=== PATIENT | female | born 1935 | race Caucasian/White ===

== ENCOUNTER 2019-01-10 14:40 | Observation (INO) | payer MEDICARE ==
[2019-01-10] MEDS ORDERED: Heparin Sodium/D5W 25,000 UNITS/500 ML BAG IV SCH (17:00)
[2019-01-10] MEDS ORDERED: Digoxin 500 MCG/2 ML Amp IV ONE (17:00)
[2019-01-10] MEDS ORDERED: Rivaroxaban 10 MG Tab PO ONE (17:13)
--- NOTE | 2019-01-10 17:13 | PCM.HP.2 ---
H&P History of Present Illness - General Date of Service: 01/10/19 Source of Information: Patient History Limitations: Reports: No Limitations - History of Present Illness Initial Comments - Free Text/Narative: Sudden onset of shortness of breath Wednesday PM when she got home from [facility]. She has had weakness and shortness of breath since and worse with activity. She came to the clinic not feeling well. She has had Palpations in the past. She drinks one cup of coffee daily usually. Onset of Symptoms: Reports: Sudden Symptom Onset Date: 01/08/19 Location: Reports: Generalized Associated Symptoms: Reports: Shortness of Breath, Other (rapid heart rate) - Related Data Allergies/Adverse Reactions: Allergies Allergy/AdvReac Type Severity Reaction Status Date / Time No Known Allergies Allergy Verified 01/23/16 08:01 Home Medications: Home Meds Carvedilol [Coreg] 25 mg PO BID 02/14/13 [History] Pravastatin Sodium 40 mg PO DAILY 02/14/13 [History] Past Medical History HEENT History: Reports: Impaired Vision Cardiovascular History: Reports: Arrhythmia, High Cholesterol, Hypertension Gastrointestinal History: Reports: GERD STOCK FITTER History: Reports: Dysfunctional Uterine Bleeding, Endometriosis, Fibroids , Musculoskeletal History: Reports: Arthritis, Back Pain, Chronic, Other (See Below) Other Musculoskeletal History: spinal fussion Hematologic History: Reports: Blood Transfusion(s) Oncologic (Cancer) History: Reports: Other (See Below) Other Oncologic History: melanoma - Past Surgical History HEENT Surgical History: Reports: Other (See Below) GI Surgical History: Reports: Appendectomy, Colonoscopy Female Surgical History: Reports: Hysterectomy, Salpingo-Oophorectomy Neurological Surgical History: Reports: Spinal Fusion Social & Family History - Family History Cardiac: Reports: [place] Neurological: Reports: Cerebral Aneurysms Psychiatric: Reports: Depression Oncologic: Reports: Breast, Lung, Other (See Below) Other Oncologic Family History: adrenal cancer - Caffeine Use Caffeine Use: Reports: Coffee H&P Review of Systems - Review of Systems: Review Of Systems: See Below General: Reports: Weakness, Decreased Appetite Pulmonary: Reports: Shortness of Breath Cardiovascular: Reports: Palpitations, Dyspnea on Exertion, Lightheadedness Gastrointestinal: Reports: No Symptoms Genitourinary: Reports: No Symptoms Musculoskeletal: Reports: No Symptoms Skin: Reports: No Symptoms Psychiatric: Reports: No Symptoms Exam - Exam Exam: See Below - Vital Signs Vital Signs: Last Vital Signs Temp 97.6 F 01/10/19 15:13 Pulse 104 H 01/10/19 15:13 Resp BP 140/89 01/10/19 15:13 Pulse Ox 100 01/10/19 15:13 Weight: 145 lb - Exam General: Alert, Oriented, Moderate Distress HEENT: PERRLA, Hearing Intact, Mucosa Moist & [place], Nares Patent, Normal Nasal Septum, Posterior Pharynx Clear, Conjunctiva Clear, EOMI, EACs Clear, TMs Clear Neck: Supple, Trachea Midline, 2 Lungs: Clear to Auscultation, Normal Respiratory Effort Cardiovascular: Irregular Rhythm, Tachycardia GI/Abdominal Exam: Normal Bowel Sounds, Soft, Non-Tender, No Organomegaly, No Distention, No Abnormal Bruit, No Mass, Pelvis Stable Back Exam: Normal Inspection, Full Range of Motion, NT Extremities: Normal Inspection, Normal Range of Motion, Non-Tender, No Pedal Edema, Normal Capillary Refill Peripheral Pulses: 1+: Radial (L), Radial (R) Skin: Warm, Dry, Intact Neuro Extensive - Mental Status: Alert, Oriented x3, Normal Mood/Affect, Normal Cognition DTR: 1+: Bicep (L), Bicep (R) Psychiatric: Alert, Normal Affect, Normal Mood - Patient Data Lab Results Last 24 hrs: Laboratory Results - last 24 hr 01/10/19 01/10/19 Range/Units 16:41 17:00 WBC 8.3 (4.5-11.0) K/uL RBC 4.83 (3.30-5.50) M/uL Hgb 14.9 (12.0-15.0) g/dL Hct 45.1 (36.0-48.0) % MCV 93 (80-98) fL MCH 31 (27-31) pg MCHC 33 (32-36) % Plt Count 235 (150-400) K/uL APTT 25.7 L (27.0-36.0) sec Result Diagrams: 01/10/19 17:00 Problem List Initiated/Reviewed/Updated: Yes Orders Last 24hrs: Active Orders 24 hr Category Date Time Status EKG Documentation Completion [RC] ASDIRECTED Care 01/10/19 16:29 Active Echo Comp wo Cont [US] Routine Exams 01/11/19 07:00 Stop Req Echo Comp wo Cont [US] Routine Exams 01/12/19 07:00 Ordered COMPREHENSIVE METABOLIC PN,CMP [CHEM] Routine Lab 01/10/19 17:00 Ordered CREATINE KINASE,CK [CHEM] Routine Lab 01/10/19 17:00 Ordered TROPONIN I [CHEM] Routine Lab 01/10/19 17:00 Ordered URINALYSIS W/MICROSCOPIC [UA W/MICROSCOPIC] [URIN] Lab 01/10/19 17:00 Ordered Routine Heparin Sodium/D5W [Heparin 25,000 Units in D5W 500 ML] Med 01/10/19 17:00 Pending 25,000 units in 500 ml IV TITRATE EKG 12 Lead [EK] Routine Ther 01/10/19 17:00 Ordered Medication Orders Heparin Sodium/Dextrose (Heparin 25,000 Units In D5w 500 Ml) 25,000 units in 500 mls @ 23.4 mls/hr IV TITRATE SITA; Protocol Assessment/Plan Comment:: Assessment/Plan: #1. Atrial fib with tachycardia response. We are <72 hours from the onset so will cardiovert here tonight. at 7:30. Will then continue with Xarelto 20 mg daily with food post cardioversion. #2. HTN: Will continue with Coreg 25 mg daily and Losartan 50mg daily. #3. HLD: Continue with Pravastatin 40 m daily.
[2019-01-10] MEDS ORDERED: Propofol 200 MG/20 ML SDV ONE (20:00)
--- NOTE | 2019-01-10 20:10 | PCM.OPNOTE ---
- General Post-Op/Procedure Note Date of Surgery/Procedure: 01/10/19 Operative Procedure(s): Cardioversion Pre Op Diagnosis: Atrial Fib Post-Op Diagnosis: Conversion to NSR Condition: Good
[2019-01-10] MEDS: Carvedilol 25 MG Tab PO SCH (20:35)
--- NOTE | 2019-01-11 07:47 | PROC ---
DATE OF PROCEDURE: 01/10/2019 SURGEON: Chirag Moses MD Deepa Pierson is an 83-year-old female who comes in for an evaluation because of severe weakness. She came into the office, having no energy and shortness of breath. This started less than 72 hours ago. She said it became regular and then it went tachycardic again. I sent her over to the hospital to the ICU for evaluation and decided to do cardioversion. There is a family history in her son, as well as her mother, needing cardioversions as well, due to atrial fibrillation. The risks and benefits were explained to the patient. This was done in the ICU while she was in her bed. Anesthesia was assisted, and they gave her propofol prior to the procedure. She was given the medication. She fell asleep. We used 200 joules, and she converted to normal sinus rhythm, documented by electrocardiogram. She is already on a beta marylin. We have given her an extra 12.5 mg p.o. and also gave her digoxin earlier. Her heart rate prior to the procedure was up to 150-160 and blood pressure in the office was 80 systolic, then went up to 150 while in the hospital. PREOPERATIVE DIAGNOSIS: Atrial fibrillation. POSTOPERATIVE DIAGNOSIS: Conversion to a normal sinus rhythm. Chirag Moses MD /[id number]
[2019-01-11 07:48] VITALS: BP 143/69
[2019-01-11 08:34] VITALS: PULSE 62
[2019-01-11] MEDS: Carvedilol 25 MG Tab PO SCH (08:34)
[2019-01-11] MEDS ORDERED: Pravastatin 20 MG Tab PO SCH (09:00)
--- NOTE | 2019-01-11 16:24 | PCM.DCSUM1 ---
Discharge Summary - Hospital Course Brief History: Admitted from the office after was found that she was in atrial fibrillation with a bratty tachycardia syndrome and hypotension. Diagnosis: Stroke: No - Discharge Data Discharge Date: 01/11/19 Discharge Disposition: Home, Self-Care 01 Condition: Good - Referral to Home Health Primary Care Physician: Chirag Moses Sr, MD - Patient Summary/Data Operative Procedure(s) Performed: Cardioversion Hospital Course: After admission to the hospital we ordered a cardioversion which wasn't done and her heart rate returned from tachycardia to a normal sinus rhythm with a few PACs. She was observed through the night and electrocardiogram was done in the morning which showed sinus rhythm. She was placed on Xarelto 20 mg daily. She was discharged home and to follow-up in the office in one week. - Patient Instructions Diet: Heart Healthy Diet Activity: As Tolerated - Discharge Plan *PRESCRIPTION DRUG MONITORING PROGRAM REVIEWED*: No *COPY OF PRESCRIPTION DRUG MONITORING REPORT IN PATIENT BRENT: No Prescriptions/Med Rec: Rivaroxaban [Xarelto] 20 mg PO DAILY 30 Days tablet Home Medications: Home Meds Carvedilol [Coreg] 25 mg PO BID 02/14/13 [History] Pravastatin Sodium 40 mg PO DAILY 02/14/13 [History] Losartan Potassium 50 mg PO DAILY 01/10/19 [History] Rivaroxaban [Xarelto] 20 mg PO DAILY 30 Days tablet 01/11/19 [Rx] Patient Handouts: Electrical Cardioversion, Care After, Atrial Fibrillation, [id number] - Discharge Summary/Plan Comment DC Time >30 min.: No Discharge Summary/Plan Comment: Assessment/Plan: #1. Atrial fib with tachycardia response. She was cardioverted last night and had an uneventful night and she is wanting to go home. #2. HTN: Will continue with Coreg 25 mg daily and Losartan 50mg daily. #3. HLD: Continue with Pravastatin 40 m daily. - Review of Systems General: Reports: No Symptoms HEENT: Reports: No Symptoms Pulmonary: Reports: No Symptoms Cardiovascular: Reports: No Symptoms Gastrointestinal: Reports: No Symptoms Genitourinary: Reports: No Symptoms Musculoskeletal: Reports: No Symptoms Skin: Reports: No Symptoms Neurological: Reports: No Symptoms Psychiatric: Reports: No Symptoms - Patient Data Vitals - Most Recent: Last Vital Signs Temp 97.1 F 01/11/19 07:48 Pulse 62 10/02/19 08:34 Resp 12 01/11/19 07:48 BP 143/69 H 01/11/19 08:34 Pulse Ox 98 01/11/19 07:48 Weight - Most Recent: 145 lb I&O - Last 24 hours: Intake & Output 01/11/19 01/11/19 01/11/19 06:59 14:59 22:59 Intake Total 50 Balance 50 Lab Results - Last 24 hrs: Laboratory Results - last 24 hr 01/10/19 01/10/19 01/10/19 Range/Units 16:41 17:00 17:00 WBC 8.3 (4.5-11.0) K/uL RBC 4.83 (3.30-5.50) M/uL Hgb 14.9 (12.0-15.0) g/dL Hct 45.1 (36.0-48.0) % MCV 93 (80-98) fL MCH 31 (27-31) pg MCHC 33 (32-36) % Plt Count 235 (150-400) K/uL APTT 25.7 L (27.0-36.0) sec Sodium 139 L (140-148) mmol/L Potassium 4.4 (3.6-5.2) mmol/L Chloride 105 (100-108) mmol/L Carbon Dioxide 27 (21-32) mmol/L Anion Gap 11.4 (5.0-14.0) mmol/L BUN 28 H (7-18) mg/dL Creatinine 1.4 H (0.6-1.0) mg/dL Est Cr Clr Drug Dosing 23.78 mL/min Estimated GFR (MDRD) 36 L (>60) Glucose 101 (74-106) mg/dL Calcium 8.9 (8.5-10.1) mg/dL Magnesium (1.8-2.4) mg/dL Total Bilirubin 0.4 (0.2-1.0) mg/dL AST 16 (15-37) U/L ALT 18 (12-78) U/L Alkaline Phosphatase 76 (46-116) U/L Creatine Kinase 27 (26-192) U/L Troponin I < 0.017 (0.000-0.056) ng/mL Total Protein 6.7 (6.4-8.2) g/dL Albumin 3.3 L (3.4-5.0) g/dL Globulin 3.4 (2.3-3.5) g/dL Albumin/Globulin Ratio 1.0 L (1.2-2.2) Urine Color (YELLOW) Urine Appearance (CLEAR) Urine pH (5.0-8.0) Ur Specific [place] (1.008-1.030) Urine Protein (NEGATIVE) mg/dL Urine Glucose (UA) (NEGATIVE) mg/dL Urine Ketones (NEGATIVE) mg/dL Urine Occult Blood (NEGATIVE) Urine Nitrite (NEGATIVE) Urine Bilirubin (NEGATIVE) Urine Urobilinogen (0.2-1.0) EU/dL Ur Leukocyte Esterase (NEGATIVE) Urine RBC (0-5) Urine WBC (0-5) Ur Epithelial Cells Amorphous Sediment Urine Bacteria Urine Mucus 01/10/19 01/11/19 Range/Units 17:00 09:01 WBC (4.5-11.0) K/uL RBC (3.30-5.50) M/uL Hgb (12.0-15.0) g/dL Hct (36.0-48.0) % MCV (80-98) fL MCH (27-31) pg MCHC (32-36) % Plt Count (150-400) K/uL APTT (27.0-36.0) sec Sodium (140-148) mmol/L Potassium (3.6-5.2) mmol/L Chloride (100-108) mmol/L Carbon Dioxide (21-32) mmol/L Anion Gap (5.0-14.0) mmol/L BUN (7-18) mg/dL Creatinine (0.6-1.0) mg/dL Est Cr Clr Drug Dosing mL/min Estimated GFR (MDRD) (>60) Glucose (74-106) mg/dL Calcium (8.5-10.1) mg/dL Magnesium 1.9 (1.8-2.4) mg/dL Total Bilirubin (0.2-1.0) mg/dL AST (15-37) U/L ALT (12-78) U/L Alkaline Phosphatase (46-116) U/L Creatine Kinase (26-192) U/L Troponin I (0.000-0.056) ng/mL Total Protein (6.4-8.2) g/dL Albumin (3.4-5.0) g/dL Globulin (2.3-3.5) g/dL Albumin/Globulin Ratio (1.2-2.2) Urine Color Yellow (YELLOW) Urine Appearance Clear (CLEAR) Urine pH 5.5 (5.0-8.0) Ur Specific [place] 1.020 (1.008-1.030) Urine Protein Negative (NEGATIVE) mg/dL Urine Glucose (UA) Negative (NEGATIVE) mg/dL Urine Ketones Negative (NEGATIVE) mg/dL Urine Occult Blood Small H (NEGATIVE) Urine Nitrite Negative (NEGATIVE) Urine Bilirubin Negative (NEGATIVE) Urine Urobilinogen 0.2 (0.2-1.0) EU/dL Ur Leukocyte Esterase Negative (NEGATIVE) Urine RBC 0-5 (0-5) Urine WBC 0-5 (0-5) Ur Epithelial Cells Few Amorphous Sediment Not seen Urine Bacteria Not seen Urine Mucus Moderate Med Orders - Current: Current Medications Discontinued Medications Carvedilol (Coreg) 25 mg PO BID [facility] Last Admin: 01/11/19 08:34 Dose: 25 mg Digoxin (Lanoxin) 500 mcg IV ONETIME ONE Stop: 01/10/19 17:01 Last Admin: 01/10/19 16:56 Dose: 500 mcg Pravastatin Sodium (Pravachol) 40 mg PO DAILY [facility] Last Admin: 01/11/19 08:33 Dose: 40 mg Propofol (Diprivan 20 Ml) Confirm Administered Dose 200 mg .ROUTE .STK-MED ONE Stop: 01/10/19 20:01 Rivaroxaban (Xarelto) 20 mg PO ONETIME ONE Stop: 01/10/19 17:14 Last Admin: 01/10/19 17:40 Dose: 20 mg - Exam General: Reports: Alert, Oriented HEENT: Reports: Pupils Equal, Pupils Reactive, EOMI, Mucous Membr. Moist/[place] Neck: Reports: Supple Lungs: Reports: Clear to Auscultation, Normal Respiratory Effort Cardiovascular: Reports: Regular Rate, Regular Rhythm GI/Abdominal Exam: Normal Bowel Sounds, Soft, Non-Tender, No Organomegaly, No Distention, No Abnormal Bruit, No Mass, Pelvis Stable (Female) Exam: Normal External Exam, Normal Speculum Exam, Normal Bimanual Exam Back Exam: Reports: Normal Inspection, Full Range of Motion Extremities: Normal Inspection, Normal Range of Motion, Non-Tender, No Pedal Edema, Normal Capillary Refill Skin: Reports: Warm, Dry, Intact Neurological: Reports: No New Focal Deficit Psy/Mental Status: Reports: Alert, Normal Affect, Normal Mood
--- NOTE | 2019-01-11 16:27 | PCM.PN ---
- General Info Date of Service: 01/11/19 Admission Dx/Problem (Free Text): Atrial fibrillation with tachycardia response as well as bradycardia prior to admission with hypo-and then hypertension. Functional Status: Reports: Pain Controlled - Review of Systems General: Reports: No Symptoms HEENT: Reports: No Symptoms Pulmonary: Reports: No Symptoms Cardiovascular: Reports: No Symptoms Gastrointestinal: Reports: No Symptoms Genitourinary: Reports: No Symptoms Musculoskeletal: Reports: No Symptoms Skin: Reports: No Symptoms Neurological: Reports: No Symptoms Psychiatric: Reports: No Symptoms - Patient Data Vitals - Most Recent: Last Vital Signs Temp 97.1 F 01/11/19 07:48 Pulse 62 01/11/19 08:34 Resp 12 01/11/19 07:48 BP 143/69 H 01/11/19 08:34 Pulse Ox 98 01/11/19 07:48 Weight - Most Recent: 145 lb I&O - Last 24 Hours: Intake & Output 01/11/19 01/11/19 01/11/19 06:59 14:59 22:59 Intake Total 50 Balance 50 Lab Results Last 24 Hours: Laboratory Results - last 24 hr 01/10/19 01/10/19 01/10/19 Range/Units 16:41 17:00 17:00 WBC 8.3 (4.5-11.0) K/uL RBC 4.83 (3.30-5.50) M/uL Hgb 14.9 (12.0-15.0) g/dL Hct 45.1 (36.0-48.0) % MCV 93 (80-98) fL MCH 31 (27-31) pg MCHC 33 (32-36) % Plt Count 235 (150-400) K/uL APTT 25.7 L (27.0-36.0) sec Sodium 139 L (140-148) mmol/L Potassium 4.4 (3.6-5.2) mmol/L Chloride 105 (100-108) mmol/L Carbon Dioxide 27 (21-32) mmol/L Anion Gap 11.4 (5.0-14.0) mmol/L BUN 28 H (7-18) mg/dL Creatinine 1.4 H (0.6-1.0) mg/dL Est Cr Clr Drug Dosing 23.78 mL/min Estimated GFR (MDRD) 36 L (>60) Glucose 101 (74-106) mg/dL Calcium 8.9 (8.5-10.1) mg/dL Magnesium (1.8-2.4) mg/dL Total Bilirubin 0.4 (0.2-1.0) mg/dL AST 16 (15-37) U/L ALT 18 (12-78) U/L Alkaline Phosphatase 76 (46-116) U/L Creatine Kinase 27 (26-192) U/L Troponin I < 0.017 (0.000-0.056) ng/mL Total Protein 6.7 (6.4-8.2) g/dL Albumin 3.3 L (3.4-5.0) g/dL Globulin 3.4 (2.3-3.5) g/dL Albumin/Globulin Ratio 1.0 L (1.2-2.2) Urine Color (YELLOW) Urine Appearance (CLEAR) Urine pH (5.0-8.0) Ur Specific [place] (1.008-1.030) Urine Protein (NEGATIVE) mg/dL Urine Glucose (UA) (NEGATIVE) mg/dL Urine Ketones (NEGATIVE) mg/dL Urine Occult Blood (NEGATIVE) Urine Nitrite (NEGATIVE) Urine Bilirubin (NEGATIVE) Urine Urobilinogen (0.2-1.0) EU/dL Ur Leukocyte Esterase (NEGATIVE) Urine RBC (0-5) Urine WBC (0-5) Ur Epithelial Cells Amorphous Sediment Urine Bacteria Urine Mucus 01/10/19 01/11/19 Range/Units 17:00 09:01 WBC (4.5-11.0) K/uL RBC (3.30-5.50) M/uL Hgb (12.0-15.0) g/dL Hct (36.0-48.0) % MCV (80-98) fL MCH (27-31) pg MCHC (32-36) % Plt Count (150-400) K/uL APTT (27.0-36.0) sec Sodium (140-148) mmol/L Potassium (3.6-5.2) mmol/L Chloride (100-108) mmol/L Carbon Dioxide (21-32) mmol/L Anion Gap (5.0-14.0) mmol/L BUN (7-18) mg/dL Creatinine (0.6-1.0) mg/dL Est Cr Clr Drug Dosing mL/min Estimated GFR (MDRD) (>60) Glucose (74-106) mg/dL Calcium (8.5-10.1) mg/dL Magnesium 1.9 (1.8-2.4) mg/dL Total Bilirubin (0.2-1.0) mg/dL AST (15-37) U/L ALT (12-78) U/L Alkaline Phosphatase (46-116) U/L Creatine Kinase (26-192) U/L Troponin I (0.000-0.056) ng/mL Total Protein (6.4-8.2) g/dL Albumin (3.4-5.0) g/dL Globulin (2.3-3.5) g/dL Albumin/Globulin Ratio (1.2-2.2) Urine Color Yellow (YELLOW) Urine Appearance Clear (CLEAR) Urine pH 5.5 (5.0-8.0) Ur Specific [place] 1.020 (1.008-1.030) Urine Protein Negative (NEGATIVE) mg/dL Urine Glucose (UA) Negative (NEGATIVE) mg/dL Urine Ketones Negative (NEGATIVE) mg/dL Urine Occult Blood Small H (NEGATIVE) Urine Nitrite Negative (NEGATIVE) Urine Bilirubin Negative (NEGATIVE) Urine Urobilinogen 0.2 (0.2-1.0) EU/dL Ur Leukocyte Esterase Negative (NEGATIVE) Urine RBC 0-5 (0-5) Urine WBC 0-5 (0-5) Ur Epithelial Cells Few Amorphous Sediment Not seen Urine Bacteria Not seen Urine Mucus Moderate Med Orders - Current: Current Medications Discontinued Medications Carvedilol (Coreg) 25 mg PO BID [facility] Last Admin: 01/11/19 08:34 Dose: 25 mg Digoxin (Lanoxin) 500 mcg IV ONETIME ONE Stop: 01/10/19 17:01 Last Admin: 01/10/19 16:56 Dose: 500 mcg Pravastatin Sodium (Pravachol) 40 mg PO DAILY [facility] Last Admin: 01/11/19 08:33 Dose: 40 mg Propofol (Diprivan 20 Ml) Confirm Administered Dose 200 mg .ROUTE .STK-MED ONE Stop: 01/10/19 20:01 Rivaroxaban (Xarelto) 20 mg PO ONETIME ONE Stop: 01/10/19 17:14 Last Admin: 01/10/19 17:40 Dose: 20 mg - Exam General: Alert, Oriented HEENT: Pupils Equal, Pupils Reactive, EOMI, Mucous Membr. Moist/[place] Neck: Supple Lungs: Clear to Auscultation, Normal Respiratory Effort Cardiovascular: Regular Rate, Regular Rhythm GI/Abdominal Exam: Normal Bowel Sounds, Soft, Non-Tender, No Organomegaly, No Distention, No Abnormal Bruit, No Mass, Pelvis Stable Extremities: Normal Inspection, Normal Range of Motion, Non-Tender, No Pedal Edema, Normal Capillary Refill Peripheral Pulses: 1+: Radial (L), Radial (R) Skin: Warm (if), Dry, Intact Neurological: No New Focal Deficit Psy/Mental Status: Alert, Normal Affect, Normal Mood - Problem List Review Problem List Initiated/Reviewed/Updated: Yes - My Orders Last 24 Hours: My Active Orders 01/10/19 16:29 EKG Documentation Completion [RC] ASDIRECTED 01/10/19 17:00 EKG 12 Lead [EK] Routine 01/11/19 08:40 EKG Documentation Completion [RC] ASDIRECTED EKG 12 Lead [EK] Routine 01/11/19 09:04 Ready for Discharge [RC] PER UNIT ROUTINE - Plan Plan:: Assessment/Plan: #1. Atrial fib with tachycardia response. She was cardioverted last night and had an uneventful night and she is wanting to go home. #2. HTN: Will continue with Coreg 25 mg daily and Losartan 50mg daily. #3. HLD: Continue with Pravastatin 40 m daily.
== END 2019-01-11 10:12 | disposition home or self-care (01) ==
LOC: JP.ICU 14:40 → UNDOADMIN 14:40 → JP.ICU 14:40 → UNDODISIN 01-11 10:12
PROVIDERS: ADMIT Internal Medicine; ATTEND Internal Medicine
DX: I48.91 Unspecified atrial fibrillation (principal); I49.5 Sick sinus syndrome; I95.9 Hypotension, unspecified; I10 Essential (primary) hypertension; E78.00 Pure hypercholesterolemia, unspecified; Z82.49 Family history of ischemic heart disease and other diseases of the circulatory system; Z79.899 Other long term (current) drug therapy
CPT/HCPCS: 36415; 80053; 81001; 82550; 83735; 84484; 85027; 85730; 92960; 93005; 93010; A9270; J1160; J2704

== ENCOUNTER 2024-01-03 11:50 | Emergency (ER) | payer MEDICARE ==
[2024-01-03 12:08] VITALS: PULSE 71
[2024-01-03 14:05] VITALS: BP 168/83
== END 2024-01-03 14:16 | disposition home or self-care (01) ==
LOC: JP.ED 11:50
DX: I10 Essential (primary) hypertension (principal); E78.00 Pure hypercholesterolemia, unspecified; Z90.49 Acquired absence of other specified parts of digestive tract; Z90.710 Acquired absence of both cervix and uterus; Z79.01 Long term (current) use of anticoagulants; Z79.899 Other long term (current) drug therapy
CPT/HCPCS: 99283